=== PATIENT | female | born 1980 | race Caucasian/White ===

== ENCOUNTER → 2018-01-15 | Outpatient (CLI) | payer OTHER ==
[~2018-01-15] MED LIST: BCPILLS PO; BUPRTAB51 PO; SERT100T PO
== END | disposition home or self-care (01) ==
LOC: C.PAPS 08:38
PROVIDERS: ATTEND Obstetrics & Gynecology
DX: Z12.4 Encounter for screening for malignant neoplasm of cervix (principal)

== ENCOUNTER 2022-12-31 06:41 | Inpatient (IN) ==
[2022-12-31] MEDS ORDERED: MoRPHine SULFATE 10 MG/ML CARP/VIAL IV STA (07:06)
[2022-12-31] MEDS ORDERED: ONDANSETRON INJ 2 MG/ML 2 ML VIAL IV STA ×2 (07:06→11:41)
--- NOTE | 2022-12-31 07:13 | Emergency Department Note ---
Impression & Plan Diffuse abdominal pain ED Provider Note INFORMANT: Patient ED PROVIDER(S): Jt Ron DO CHIEF COMPLAINT: Diffuse crampy abdominal pain PLAN: Disposition: Admission Condition: Good Outpatient prescription management: none Referral: I spoke with the hospitalist, who will see the patient for a dmission/observation and further evaluation and consultation. MEDICAL DECISION MAKING: This is a 42-year-old female who presents to the ED with a chief complaint of crampy continuous of abdominal pain that is diffuse in nature. The patient states that it seems to be a little worse in the upper abdominal region. It started at 315 this morning. Woke her from sleep. She reports 1 episode of vomiting and strain to have a bowel movement. The symptoms are ongoing since that time. She currently did not have any nausea but did have some nausea earlier. G0, P0. Denies possibility of . Her vital signs reveal mild hypertension and tachycardia. She does have some mild tenderness to the epigastric area. Denies any previous abdominal surgeries. The patient's CBC shows a leukocytosis of 15. Chest x-ray did not show acute process. EKG shows a sinus rhythm at a rate of 83. Chemistry panel was unremarkable. Lipase was 14,380. CT scan shows evidence of pancreatitis. hCG was negative. The patient was given IV fluids normal saline. She was given IV morphine as well as IV Zofran and IV Dilaudid. She will be seen by the hospitalist for further e valuation and care. Triage Nursing notes reviewed. Vital Signs: reviewed Prior /Outside records reviewed: Gynecology visit 12/21/2022. Annual exam. Past history of abnormal Pap smear in the past. Differential diagnosis: Bowel obstruction, gastritis, colitis, intussusception, volvulus, pancreatitis, cholecystitis, other. Diagnostics, as interpreted by me: 12 lead ECG: Sinus rhythm at a rate of 83. No ST elevation. No PVCs. Normal QTC. Cardiac Monitoring ordered: Sinus rhythm in the 80s. Medical decision rules: none Imaging studies: Chest x-ray: No acute disease. No pneumonia or pneumothorax. CT scan of the abdomen pelvis shows pancreatitis. Procedures: none. Critical care: none. HPI: See MDM above. PAST MEDICAL HISTORY: See Below PAST SURGICAL HISTORY: See Below SOCIAL HISTORY: See Below HOME MEDICATIONS: See Below ALLERGIES: See Below VITALS: See Below PHYSICAL EXAMINATION: CONSTITUTIONAL/VITAL SIGNS: Reviewed GENERAL: Non-toxic in appearance. INTEGUMENTARY: Warm, dry, and [place]. HEAD: Normocephalic. EYES: without scleral icterus. ENT/OROPHARYNX: clear and moist. RESPIRATORY: No increased work of breathing. Lungs clear. CARDIOVASCULAR: Regular rate. Regular rhythm. GI/ABDOMEN: Soft and nontender. . EXTREMITIES: Normal NEUROLOGICAL: Intact without focal deficits. PSYCHIATRIC: Normal affect. MUSCULOSKELETAL: Normal. TRIAGE NURSING DOCUMENTATION REVIEWED. Past Med/Surg History Medical History (Updated 12/31/22 @ 07:12 by Jt Ron DO) Abnormal Pap smear of cervix Allergic rhinitis Bacterial vaginosis Depression Encounter for gynecological examination without abnormal finding External hemorrhoids Lichen sclerosus et atrophicus Screening for STD (sexually transmitted disease) SAMM III (vulvar intraepithelial neoplasia III) Surgical History (Updated 12/21/22 @ 13:06 by Caren Ann MD, FACOG) H/O hemorrhoidectomy H/O left breast biopsy fibroadenoma H/O local excision of skin lesion WLE of vulva by DERM for samm 3 H/O ovarian cystectomy left History of colposcopy History of tonsillectomy Family History Other Heart disease Social History (Updated 12/14/21 @ 14:23 by CASPER Balderrama) Smoking Status: Never smoker Tobacco Type: Cigarettes Age Started Using Tobacco: 16; Age Quit Using Tobacco: 30; Hx Alcohol Use: No Hx Substance Use: Yes Preferred Language: Palauan Feels Safe at Home: Yes Allergies Allergies Allergy/AdvReac Type Severity Reaction Status Date / Time methylchloroisothiazolinone Allergy Verified 12/21/22 12:52 Home Meds Home Medications Medication Instructions Recorded Confirmed cholecalciferol (vitamin D3) 25 75 mcg PO DAILY 06/07/21 12/21/22 mcg (1,000 unit) tablet (Vitamin D3) diphenhydramine HCl 25 mg tablet 12.5 mg PO DAILY 06/07/21 12/21/22 (Benadryl Allergy) losartan 25 mg tablet 12.5 mg PO DAILY 06/07/21 12/21/22 hydroxyzine HCl PO 09/20/22 12/21/22 biotin 5 mg capsule 5 mg PO DAILY 12/21/22 12/21/22 Results & Data (ED) Vital Signs Vital Signs - 24 hr 12/31/22 06:43 12/31/22 07:25 12/31/22 08:41 Temperature 36.6 C Temperature Source Temporal Artery Scan Pulse Rate 106 H Pulse Rate [Apical] 87 Pulse Rhythm Regular Pulse Strength Normal Respiratory Rate 18 18 Respiratory Effort / Characteristics Non-Labored Spontaneous Respiratory Depth Normal Respiratory Pattern Regular Blood Pressure 146/91 H Blood Pressure [Left Arm] 135/90 Blood Pressure Mean 109 Blood Pressure Mean [Left Arm] 105 Blood Pressure Position Sitting Pulse Oximetry 100 100 97 Oxygen Delivery Method Room Air Room Air Room Air Sepsis Recent Fever Within 48 Hours No Sepsis New/Unexplained Change in Mental Status No Sepsis Action Taken by Nursing No Action Required Laboratory Data 12/31/22 07:00 12/31/22 07:00 Lab Results 12/31/22 12/31/22 12/31/22 Range/Units 07:00 07:00 07:00 WBC 15.04 H (4.8-10.8) K/ul RBC 4.37 (4.20-5.40) M/uL Hgb 13.6 (12.0-16.0) g/dl Hct 39.3 (37.0-47.0) % MCV 89.9 (80.0-100.0) fL MCH 31.1 (25.0-34.0) pg MCHC 34.6 (32.0-36.0) g/dL RDW Std Deviation 39.5 (36.4-46.3) fL RDW Coeff of [place] 12.0 (11.5-14.5) % Plt Count 232 (130-400) K/uL MPV 10.1 (9.4-12.4) fL Immature Gran % (Auto) 0.4 % Neut % (Auto) 85.7 % Lymph % (Auto) 8.5 % [place]cher % (Auto) 4.3 % Eos % (Auto) 0.8 % Baso % (Auto) 0.3 % Neut # (Auto) 12.89 H (1.40-6.50) K/uL Lymph # (Auto) 1.28 (1.2-3.4) K/uL Letcher # (Auto) 0.65 H (0.11-0.59) K/uL Eos # (Auto) 0.12 (0-0.50) K/uL Baso # (Auto) 0.04 (0-0.2) K/uL Immature Gran # (Auto) 0.06 (0.01-0.20) K/uL Sodium 140 (136-145) mmol/L Potassium 3.9 (3.5-5.1) mmol/L Chloride 107 (98-107) mmol/L Carbon Dioxide 28 (21-32) mmol/L Anion Gap 5 (3-11) BUN 14 (6-23) mg/dl Creatinine 1.14 (0.6-1.2) mg/dl Est Cr Clr Drug Dosing 67.0 ml/min Est GFR ( Amer) 69.7 ml/min Est GFR (Non-Af Amer) 60.1 ml/min BUN/Creatinine Ratio 12.3 (10-20) Glucose 143 H (70-99(Fasting)) mg/dl Calcium 10.0 (8.5-10.1) mg/dl Total Bilirubin 0.5 (0.2-1.0) mg/dl AST 14 (13-39) U/L ALT 11 (7-52) U/L Alkaline Phosphatase 47 (34-104) U/L Total Protein 6.6 (6.0-8.3) gm/dl Albumin 4.3 (3.4-5.0) gm/dl Globulin 2.3 L (2.5-4.0) gm/dl Albumin/Globulin Ratio 1.9 (0.9-2) Lipase 60407 H (11-82) U/L HCG, Qual Negative (Negative) Administered Medications Discontinued Medications Ioversol (Optiray 350 100ml) 94 ml IV ONCE ONE Stop: 12/31/22 08:00 Last Admin: 12/31/22 08:00 Dose: 94 ml Documented By: NASIR Morphine Sulfate (Morphine Sulfate 10 Mg/Ml Carp/Vial) 6 mg IV NOW STA Stop: 12/31/22 07:07 Last Admin: 12/31/22 07:10 Dose: 6 mg Documented By: ANIA Ondansetron HCl (Ondansetron Inj 2 Mg/Ml 2 Ml Vial) 4 mg IV NOW STA Stop: 12/31/22 07:07 Last Admin: 12/31/22 07:10 Dose: 4 mg Documented By: ANIA Imaging Data Radiologist's Impression: Abdomen/Pelvis CT 12/31/22 07:06 CT SCAN OF THE ABDOMEN AND PELVIS WITH IV CONTRAST CLINICAL HISTORY: Generalized crampy abdominal pain. COMPARISON STUDY: No priors. TECHNIQUE: Following the IV administration of 94 cc of Optiray 350, CT scan of the abdomen and pelvis is performed from the lung bases to the proximal femora. Images are reviewed in the axial, sagittal, and coronal planes. IV contrast was administered without complication. A dose lowering technique was utilized adhering to the principles of ALARA. CT DOSE: 684.86 mGy.cm FINDINGS: Lung bases: The heart is normal in size and without pericardial effusion. The lung bases are clear. Liver: The contrast-enhanced liver is mildly enlarged, measuring 20 cm in length. The liver is otherwise normal in contour and attenuation. There is no intrahepatic biliary ductal dilatation. The hepatic veins and portal veins are patent. Gallbladder: Unremarkable. Spleen: Normal in size and attenuation. Pancreas: The pancreas is enlarged and edematous. There is significant peripancreatic inflammation and fluid consistent with acute pancreatitis. The gland enhances throughout and the duct is normal in caliber. No organized peripancreatic fluid collection is seen. Adrenal glands: Unremarkable. Kidneys: The contrast enhanced kidneys are normal in size and without hydronephrosis. The kidneys enhance symmetrically. Abdominal vasculature: The abdominal aorta is normal in course and caliber. Bowel: There is no bowel obstruction. Fecal retention is noted in the right colon. The appendix is well-visualized and normal. Peritoneum: Retroperitoneal fluid is seen tracking inferiorly from the pancreas. No intraperitoneal free air is identified. There is a fat-containing umbilical hernia. Lymphadenopathy: None. Pelvic viscera: The bladder, uterus, and adnexa are normal as visualized. An involuting follicle is suggested in the right ovary. Skeletal structures: No lytic or blastic lesions are seen. IMPRESSION: 1. Acute pancreatitis. Correlate with clinical and laboratory findings. 2. The gland enhances throughout and there is no organized peripancreatic fluid collection. 3. Mild hepatomegaly. 4. Additional findings as above. ACT 112: Negative or not required by law. Electronically signed by: Darien Mederos M.D. 12/31/2022 8:10 AM Chest X-Ray 12/31/22 07:07 SINGLE VIEW CHEST CLINICAL HISTORY: Upper abdominal pain FINDINGS: An AP, portable, upright chest radiograph is obtained. No prior studies are available for comparison at the time of dictation. The cardiomediastinal silhouette is unremarkable. The lungs and pleural spaces are clear. No pneumothorax is seen. The bony thorax is grossly intact. IMPRESSION: No active disease in the chest. ACT 112: Negative or not required by law. Electronically signed by: Darien Mederos M.D. 12/31/2022 7:18 AM Discharge Plan Visit Data Chief Complaint: Abdominal Pain Stated Complaint: ABD PAIN ED Provider: Jt Ron Discharge Problem: Diffuse abdominal pain Patient Disposition: Being Evaluated by Hospitalist Forms Stand Alone Forms: [facility] Prescriptions Prescriptions: No Action biotin 5 mg capsule 5 mg PO DAILY hydroxyzine HCl PO diphenhydramine HCl [Benadryl Allergy] 25 mg Tablet 12.5 mg PO DAILY losartan 25 mg tablet 12.5 mg PO DAILY cholecalciferol (vitamin D3) [Vitamin D3] 25 mcg (1,000 unit) Tablet 75 mcg PO DAILY Referrals Referrals: Jackie Mc DO [Primary Care Provider] -
[2022-12-31 07:19] LABS: Basophils # (auto) 0.04 K/uL (0-0.2); Basophils % (auto) 0.3 %; Eosinophils # (auto) 0.12 K/uL (0-0.50); Eosinophils % (auto) 0.8 %; Hematocrit (blood only) 39.3 % (37.0-47.0); Hemoglobin 13.6 g/dl (12.0-16.0); Immature Granulocytes # (auto) 0.06 K/uL (0.01-0.20); Immature Granulocytes % (auto) 0.4 %; Lymphocytes # (auto) 1.28 K/uL (1.2-3.4); Lymphocytes % (auto) 8.5 %; Mean Corpuscular Hemoglobin 31.1 pg (25.0-34.0); Mean Corpuscular Hgb Conc 34.6 g/dL (32.0-36.0); Mean Corpuscular Volume 89.9 fL (80.0-100.0); Mean Platelet Volume 10.1 fL (9.4-12.4); Monocytes # (auto) 0.65 K/uL (0.11-0.59); Monocytes % (auto) 4.3 %; Neutrophils # (auto) 12.89 K/uL (1.40-6.50); Neutrophils % (auto) 85.7 %; Platelet Count 232 K/uL (130-400); RDW Standard Deviation 39.5 fL (36.4-46.3); Red Blood Count 4.37 M/uL (4.20-5.40); White Blood Count 15.04 K/ul (4.8-10.8)
--- NOTE | 2022-12-31 07:19 | XRay Report ---
SINGLE VIEW CHEST CLINICAL HISTORY: Upper abdominal pain FINDINGS: An AP, portable, upright chest radiograph is obtained. No prior studies are available for c omparison at the time of dictation. The cardiomediastinal silhouette is unremarkable. The lungs and p leural spaces are clear. No pneumothorax is seen. The bony thorax is grossly intact. IMPRESSION: No active disease in the chest. ACT 112: Negative or not required by law. Electronically signed by: Darien Mederos M.D. 12/31/2022 7:18 AM
[2022-12-31 07:44] LABS: Pregnancy Test, Serum Negative (Negative)
[2022-12-31 07:45] LABS: BUN Creatinine Ratio 12.3 (10-20); Est GFR (African American) 69.7 ml/min; Est GFR (Non-African American) 60.1 ml/min; Potassium 3.9 mmol/L (3.5-5.1)
[2022-12-31] MEDS ORDERED: OPTIRAY 350 100ml IV ONE (07:59)
--- NOTE | 2022-12-31 08:13 | CT Scan Report ---
CT SCAN OF THE ABDOMEN AND PELVIS WITH IV CONTRAST CLINICAL HISTORY: Generalized crampy abdominal pain. COMPARISON STUDY: No priors. TECHNIQUE: Following the IV administration of 94 cc of Optiray 350, CT scan of the abdomen and pelvi s is performed from the lung bases to the proximal femora. Images are reviewed in the axial, sagittal , and coronal planes. IV contrast was administered without complication. A dose lowering technique wa s utilized adhering to the principles of ALARA. CT DOSE: 684.86 mGy.cm FINDINGS: Lung bases: The heart is normal in size and without pericardial effusion. The lung bases are clear. Liver: The contrast-enhanced liver is mildly enlarged, measuring 20 cm in length. The liver is otherw ise normal in contour and attenuation. There is no intrahepatic biliary ductal dilatation. The hepati c veins and portal veins are patent. Gallbladder: Unremarkable. Spleen: Normal in size and attenuation. Pancreas: The pancreas is enlarged and edematous. There is significant peripancreatic inflammation an d fluid consistent with acute pancreatitis. The gland enhances throughout and the duct is normal in c aliber. No organized peripancreatic fluid collection is seen. Adrenal glands: Unremarkable. Kidneys: The contrast enhanced kidneys are normal in size and without hydronephrosis. The kidneys enh ance symmetrically. Abdominal vasculature: The abdominal aorta is normal in course and caliber. Bowel: There is no bowel obstruction. Fecal retention is noted in the right colon. The appendix is w ell-visualized and normal. Peritoneum: Retroperitoneal fluid is seen tracking inferiorly from the pancreas. No intraperitoneal f ree air is identified. There is a fat-containing umbilical hernia. Lymphadenopathy: None. Pelvic viscera: The bladder, uterus, and adnexa are normal as visualized. An involuting follicle is s uggested in the right ovary. Skeletal structures: No lytic or blastic lesions are seen. IMPRESSION: 1. Acute pancreatitis. Correlate with clinical and laboratory findings. 2. The gland enhances throughout and there is no organized peripancreatic fluid collection. 3. Mild hepatomegaly. 4. Additional findings as above. ACT 112: Negative or not required by law. Electronically signed by: Darien Mederos M.D. 12/31/2022 8:10 AM
[2022-12-31 08:58] LABS: Albumin Globulin Ratio 1.9 (0.9-2); Albumin Level 4.3 gm/dl (3.4-5.0); Bilirubin,Total 0.5 mg/dl (0.2-1.0); Globulin 2.3 gm/dl (2.5-4.0); Total Protein 6.6 gm/dl (6.0-8.3)
[2022-12-31] MEDS ORDERED: SODIUM CHLORIDE 0.9% 1000ML 1,000 ML IV ONE (09:14)
[2022-12-31] MEDS ORDERED: PROCHLORPERAZINE 2 ML IV ONE (09:30)
[2022-12-31] MEDS ORDERED: HYDROmorphone INJ 2 MG/ML SYR/VIAL IV STA (09:30)
--- NOTE | 2022-12-31 09:43 | History & Physical Report ---
Date of Service December 31, 2022 Assessment & Plan (1) Acute pancreatitis: Plan: First episode of pancreatitis. No clear etiology at this time. No evidence of gallstones and no reported alcohol use. Lipid panel pending. GI aware. Cont aggressive fluid resuscitation and antiemetics/pain medication as needed. She has an issue with chronic constipation and takes miralax daily. She was counseled on the effects of narcotics from this standpoint. Given the PO volume of miralax will opt for scheduled senna instead. Scheduled APAP with Tramadol ordered. Toradol may also be used for pain control as needed first line to decrease the risks of worsening constipation and drowsiness. (2) Rash: Plan: reports a rash recently for which she was taking topical clobetasol. This is recurrent, but is currently not present. Holding clobetasol cream at this time and patient agrees with this plan. (3) Decreased sexual interest: Plan: Recently taking Addyi, stopping two weeks ago. This is a medication which works on the serotonin and dopamine receptors. There is no listed side effect of pancreatitis. (4) Anxiety: Plan: chronic, stable. Continues on hydroxyzine PRN (5) HTN (hypertension): Plan: chronic, at goal. On losartan 12.5mg daily. Cont this daily. DVT proph-Lovenox Full Code Dispo- to telemetry and likely to home in 2-3 days Julia Amos DO [facility] Hospitalist History of Present Illness Chief Complaint: abdominal pain Primary Care Provider: Jackie Mc DO 42 yo F started wtih epigastric pain described as clenching and cramping, radiates across her upper abdomen. no alcohol use no h/o gallstones chronic dermatitis-allergic Just had steroid 10-20mg last week for a couple of days related to dermatitis, which is improved recently lost her dog and reports being very stressed as a result of this. added biotin 1 month ago recently was taking freddie for low libido for 2.5 months, but stopped that 1-2 weeks ago no h/o pancreatitis no recent illnesses Allergies Allergy/AdvReac Type Severity Reaction Status Date / Time methylchloroisothiazolinone Allergy Unknown rash Verified 12/31/22 10:00 Home Medications Medication Instructions Recorded Confirmed Type cholecalciferol (vitamin D3) 25 75 mcg PO DAILY 06/07/21 12/31/22 History mcg (1,000 unit) tablet (Vitamin D3) diphenhydramine HCl 25 mg tablet 12.5 mg PO DAILY 06/07/21 12/31/22 History (Benadryl Allergy) losartan 25 mg tablet 12.5 mg PO DAILY 06/07/21 12/31/22 History hydroxyzine HCl 10 mg PO Q6H PRN Anxiety 09/20/22 12/31/22 History biotin 5 mg capsule 5 mg PO DAILY 12/21/22 12/31/22 History clobetasol 0.05 % topical cream 1 applic topical BID 12/31/22 12/31/22 History flibanserin 100 mg tablet (Addyi) mg PO 12/31/22 History Past Med/Surg History Medical History (Updated 12/31/22 @ 12:58 by Julia Amos DO) Abnormal Pap smear of cervix Allergic rhinitis Anxiety Bacterial vaginosis Depression Encounter for gynecological examination without abnormal finding External hemorrhoids HTN (hypertension) Screening for STD (sexually transmitted disease) SAMM III (vulvar intraepithelial neoplasia III) Surgical History H/O hemorrhoidectomy H/O left breast biopsy fibroadenoma H/O local excision of skin lesion WLE of vulva by DERM for samm 3 H/O ovarian cystectomy left History of colposcopy History of tonsillectomy Family History Other Heart disease Social History Smoking Status: Former smoker Tobacco Type: Cigarettes Age Started Using Tobacco: 16; Age Quit Using Tobacco: 30; Smoking End Date: 2010; Hx Alcohol Use: Yes Alcohol type: wine and hard liquor Hx Substance Use: Yes Preferred Language: Maldivian Gallery Intern Required: No Beliefs That Will Affect Care: None Current Living Situation: Spouse and Family Current Living Situation Comment: step son every other weekend Feels Safe at Home: Yes Safety Concerns: Feels Safe At This Time Assistive Devices: None Review of Systems Review of Systems: All systems were reviewed and negative except as indicated in HPI above. Physical Exam Physical Exam: CONSTITUTIONAL: WNWD, vitals as above, generally appears drowsy from dilaudid EYES: EOMI bilaterally, PERRL, normal conjunctivae, no scleral icterus ENT: external ear and nose normal, oropharynx clear, dry oral mucosa. NECK: trachea midline RESPIRATORY: clear to auscultation bilaterally, no crackles, rales or wheezes, normal respiratory effort CARDIOVASCULAR: tachy rate and rhythm, S1 and 2 heard without murmurs, gallops or rubs, no JVD, no peripheral edema CHEST: inspection of chest was normal GASTROINTESTINAL: soft, TTP in epigastric region, nondistended, no guarding. MUSCULOSKELETAL: strength 5/5 throughout, head is normocephalic and atraumatic SKIN: warm and dry, no rashes NEUROLOGIC: CN 2-12 grossly intact, no sensory deficit, normal cognition, normal speech, no tremor PSYCHIATRIC: alert cooperative and oriented to person, place and time. Euthymic mood, makes good eye contact, language grossly intact, recent and remote memory grossly intact. Results & Data Results & Data ([facility]) Vital Signs (Past 12 Hours) Vital Signs Temp Pulse Pulse Resp BP BP Pulse Ox 12/31/22 08:41 87 18 135/90 97 12/31/22 07:25 100 12/31/22 06:43 36.6 C 106 H 18 146/91 H 100 O2 Del Method 12/31/22 08:41 Room Air 12/31/22 07:25 Room Air 12/31/22 06:43 Room Air Laboratory Results Short CBC 12/31/22 Range/Units 07:00 WBC 15.04 H (4.8-10.8) K/ul Hgb 13.6 (12.0-16.0) g/dl Hct 39.3 (37.0-47.0) % Plt Count 232 (130-400) K/uL BMP 12/31/22 07:00 Sodium 140 Potassium 3.9 Chloride 107 Carbon Dioxide 28 BUN 14 Creatinine 1.14 Glucose 143 H Calcium 10.0 Liver Function 12/31/22 Range/Units 07:00 Total Bilirubin 0.5 (0.2-1.0) mg/dl AST 14 (13-39) U/L ALT 11 (7-52) U/L Alkaline Phosphatase 47 (34-104) U/L Albumin 4.3 (3.4-5.0) gm/dl Diagnostic Findings Abdomen/Pelvis CT 12/31/22 07:06 CT SCAN OF THE ABDOMEN AND PELVIS WITH IV CONTRAST CLINICAL HISTORY: Generalized crampy abdominal pain. COMPARISON STUDY: No priors. TECHNIQUE: Following the IV administration of 94 cc of Optiray 350, CT scan of the abdomen and pelvis is performed from the lung bases to the proximal femora. Images are reviewed in the axial, sagittal, and coronal planes. IV contrast was administered without complication. A dose lowering technique was utilized adhering to the principles of ALARA. CT DOSE: 684.86 mGy.cm FINDINGS: Lung bases: The heart is normal in size and without pericardial effusion. The lung bases are clear. Liver: The contrast-enhanced liver is mildly enlarged, measuring 20 cm in length. The liver is otherwise normal in contour and attenuation. There is no intrahepatic biliary ductal dilatation. The hepatic veins and portal veins are patent. Gallbladder: Unremarkable. Spleen: Normal in size and attenuation. Pancreas: The pancreas is enlarged and edematous. There is significant peripancreatic inflammation and fluid consistent with acute pancreatitis. The gland enhances throughout and the duct is normal in caliber. No organized peripancreatic fluid collection is seen. Adrenal glands: Unremarkable. Kidneys: The contrast enhanced kidneys are normal in size and without hydronephrosis. The kidneys enhance symmetrically. Abdominal vasculature: The abdominal aorta is normal in course and caliber. Bowel: There is no bowel obstruction. Fecal retention is noted in the right colon. The appendix is well-visualized and normal. Peritoneum: Retroperitoneal fluid is seen tracking inferiorly from the pancreas. No intraperitoneal free air is identified. There is a fat-containing umbilical hernia. Lymphadenopathy: None. Pelvic viscera: The bladder, uterus, and adnexa are normal as visualized. An involuting follicle is suggested in the right ovary. Skeletal structures: No lytic or blastic lesions are seen. IMPRESSION: 1. Acute pancreatitis. Correlate with clinical and laboratory findings. 2. The gland enhances throughout and there is no organized peripancreatic fluid collection. 3. Mild hepatomegaly. 4. Additional findings as above. ACT 112: Negative or not required by law. Electronically signed by: Darien Mederos M.D. 12/31/2022 8:10 AM Chest X-Ray 12/31/22 07:07 SINGLE VIEW CHEST CLINICAL HISTORY: Upper abdominal pain FINDINGS: An AP, portable, upright chest radiograph is obtained. No prior studies are available for comparison at the time of dictation. The cardiomediastinal silhouette is unremarkable. The lungs and pleural spaces are clear. No pneumothorax is seen. The bony thorax is grossly intact. IMPRESSION: No active disease in the chest. ACT 112: Negative or not required by law. Electronically signed by: Darien Mederos M.D. 12/31/2022 7:18 AM Code Status & VTE Plan VTE Prophylaxis Plan VTE Prophylaxis will be ordered: Yes
--- NOTE | 2022-12-31 10:47 | Electrocardiogram Report ---
Test Reason : Blood Pressure : / mmHG Vent. Rate : 083 BPM Atrial Rate : 083 BPM P-R Int : 086 ms QRS Dur : 076 ms QT Int : 400 ms P-R-T Axes : 000 065 027 degrees QTc Int : 470 ms Sinus rhythm with short [place] Otherwise normal ECG No previous ECGs available Confirmed by Luciano Canas ([id number]) on 12/31/2022 10:47:18 AM Referred By: REFERRED SELF Confirmed By:Luciano Canas
[2022-12-31] MEDS ORDERED: MoRPHine SULFATE 4 MG/ML 1 ML CARP\\VIAL IV PRN (11:35)
[2022-12-31] MEDS: HYDROmorphone INJ 0.5 MG/0.5 ML SYR IV PRN ×3 (12:20→23:37)
--- NOTE | 2022-12-31 12:23 | Gastrointestinal Consultation ---
Date of Consultation December 31, 2022 Assessment & Plan (1) Acute pancreatitis: Plan acute pancreatitis: idiopathic, mild at this time. no etoh abuse and no gallstones. recs: check lipid panel including triglycerides NPO, aggressive IVFs 250-500 cc/hr LR in first 24 hours pain control prn once pain and sx's improve can advance diet to low residue then as tolerated will likely need outpatient EUS to help determine etiology for her pancreatitis. Thank you for allowing me to participate in the care of this patient. History of Present Illness Attending Physician: Julia Amos, History of Present Illness 42 yo female here with epigastric pains, found to have pancreatitis. Denies ETOH abuse, CT A/P without any gallstones or gallbladder issues. She has been having nausea and vomiting as well as epigastric pains, pains are mild currently s/p dilaudid and morphine. Not on diuretics, no family hx pancreatitis nor personal hx. She does have elevated lipid levels but is not sure if it's triglycerides. no fluid collections or abscesses noted on CT. CBC, CMP, lipase reviewed. Allergies Allergy/AdvReac Type Severity Reaction Status Date / Time methylchloroisothiazolinone Allergy Unknown rash Verified 12/31/22 10:00 Home Medications Medication Instructions Recorded Confirmed Type cholecalciferol (vitamin D3) 25 75 mcg PO DAILY 06/07/21 12/31/22 History mcg (1,000 unit) tablet (Vitamin D3) diphenhydramine HCl 25 mg tablet 12.5 mg PO DAILY 06/07/21 12/31/22 History (Benadryl Allergy) losartan 25 mg tablet 12.5 mg PO DAILY 06/07/21 12/31/22 History hydroxyzine HCl 10 mg PO Q6H PRN Anxiety 09/20/22 12/31/22 History biotin 5 mg capsule 5 mg PO DAILY 12/21/22 12/31/22 History clobetasol 0.05 % topical cream 1 applic topical BID 12/31/22 12/31/22 History flibanserin 100 mg tablet (Addyi) mg PO 12/31/22 History Patient History Medical History Abnormal Pap smear of cervix Allergic rhinitis Bacterial vaginosis Depression Encounter for gynecological examination without abnormal finding External hemorrhoids Screening for STD (sexually transmitted disease) MARIAH III (vulvar intraepithelial neoplasia III) Surgical History H/O hemorrhoidectomy H/O left breast biopsy fibroadenoma H/O local excision of skin lesion WLE of vulva by DERM for mariah 3 H/O ovarian cystectomy left History of colposcopy History of tonsillectomy Family History Other Heart disease Social History Smoking Status: Former smoker Tobacco Type: Cigarettes Age Started Using Tobacco: 16; Age Quit Using Tobacco: 30; Smoking End Date: 2010; Hx Alcohol Use: No Hx Substance Use: Yes Preferred Language: Argentine Feels Safe at Home: Yes Review of Systems Constitutional: no fever, no chills and no weight loss Eyes: as per Subjective / HPI Ear, Nose, Mouth, Throat: as per Subjective / HPI Respiratory: no dyspnea and no dyspnea on exertion Cardiovascular: no chest pain and no palpitations Gastrointestinal: as per Subjective / HPI Musculoskeletal: no joint pain and no swelling Integumentary: no rash and no lesions Neurologic: no numbness and no paresthesia Psychiatric: no depression and no anxiety Endocrine: no fatigue Hematologic / Lymphatic: no easy bleeding and no easy bruising Physical Exam Constitutional: WD/WN, vitals as above Eyes: EOM intact bilaterally Neck: normal visual inspection Respiratory: normal respiratory effort, lungs clear to auscultation Cardiovascular: RRR, no murmur, no edema Gastrointestinal (Abdomen): Inspection/Auscultation: abdomen normal to inspection; abdomen not distended Percussion/Palpation: abdomen soft; abdomen nontender and no hepatosplenomegaly Musculoskeletal: Extremities: no cyanosis Gait: normal gait Skin: no rashes, warm and dry Neurologic: moves all extremities Psychiatric: A+Ox3, euthymic affect Results & Data ([facility]) Vital Signs (Past 12 Hours) Vital Signs Temp Pulse Pulse Pulse Resp BP BP 12/31/22 11:37 36.8 C 105 H 16 111/70 12/31/22 10:00 88 18 12/31/22 08:41 87 18 135/90 12/31/22 07:25 12/31/22 06:43 36.6 C 106 H 18 146/91 H Pulse Ox O2 Del Method 12/31/22 11:37 97 Room Air 12/31/22 10:00 94 Room Air 12/31/22 08:41 97 Room Air 12/31/22 07:25 100 Room Air 12/31/22 06:43 100 Room Air PG Care Time/CCT Total # of Minutes Spent Total Time Spent with Patient: Total time spent is greater than 50% in coordination of care (as documented) at patient's floor/unit and/or counseling patient: Coding Level of Care Code INP/OBS CONSULT LVL 4, 60 MIN Diagnoses Acute pancreatitis K85.90
[2022-12-31] MEDS: ACETAMINOPHEN 500 MG TAB PO SCH ×2 (12:41→20:08)
[2022-12-31] MEDS: traMADol HCL 50 MG TABLET PO SCH ×2 (12:41→20:08)
[2022-12-31] MEDS: LACTATED RINGER'S 1,000 ML IV SCH ×3 (12:42→22:42)
[2022-12-31] MEDS: KETOROLAC TROMETHAMINE 15 MG/ML VIAL IV PRN (17:23)
[2022-12-31] MEDS: DOCUSATE SODIUM/SENNA 50/8.6MG TAB PO SCH (20:08)
[2023-01-01 01:03] LABS: Appearance Urine Clear (Clear); Bacteria Urine Automated Negative (Negative); Bilirubin Urine Negative (Negative); Blood Urine 3+ (Negative); Color Urine Yellow; Epithelial Cell Urine Auto >30 /lpf (0-5); Glucose Urine UA Negative (Negative); Ketones Urine Negative (Negative); Leukocyte Esterase Urine Negative (Negative); Nitrite Urine Negative (Negative); Protein Urine 1+ (Negative); RBC Urine Automated 0-4 /hpf (0-4); Specific Gravity Urine > 1.045 (1.000-1.030); Urobilinogen Urine Negative (Negative); pH Urine 5.5 (4.5-7.5)
[2023-01-01] MEDS: LACTATED RINGER'S 1,000 ML IV SCH ×5 (03:10→20:19)
[2023-01-01] MEDS: traMADol HCL 50 MG TABLET PO SCH ×3 (05:19→21:55)
[2023-01-01] MEDS: ACETAMINOPHEN 500 MG TAB PO SCH ×3 (05:20→21:55)
[2023-01-01 06:27] LABS: Hematocrit (blood only) 32.1 % (37.0-47.0); Hemoglobin 11.1 g/dl (12.0-16.0); Mean Corpuscular Hemoglobin 31.1 pg (25.0-34.0); Mean Corpuscular Hgb Conc 34.6 g/dL (32.0-36.0); Mean Corpuscular Volume 89.9 fL (80.0-100.0); Mean Platelet Volume 10.4 fL (9.4-12.4); Platelet Count 167 K/uL (130-400); RDW Standard Deviation 39.3 fL (36.4-46.3); Red Blood Count 3.57 M/uL (4.20-5.40); White Blood Count 12.36 K/ul (4.8-10.8)
[2023-01-01] MEDS: KETOROLAC TROMETHAMINE 15 MG/ML VIAL IV PRN (06:29)
[2023-01-01] MEDS: hydrOXYzine HCl 10 MG TAB PO PRN (06:29)
[2023-01-01 07:07] LABS: Albumin Level 3.5 gm/dl (3.4-5.0); BUN Creatinine Ratio 13.6 (10-20); Bilirubin Direct 0.1 mg/dl (0-0.2); Bilirubin,Total 0.9 mg/dl (0.2-1.0); Calcium 8.4 mg/dl (8.5-10.1); Chol HDL Ratio 3.9 (0-5); Creatinine Clr Calc Pharmacy 95.8 ml/min; Est GFR (African American) 105.3 ml/min; Est GFR (Non-African American) 90.8 ml/min; Magnesium 1.7 mg/dl (1.7-2.4); Phosphorus 1.9 mg/dl (2.5-4.9); Potassium 3.4 mmol/L (3.5-5.1); Total Protein 5.3 gm/dl (6.0-8.3)
[2023-01-01] MEDS: LOSARTAN POTASSIUM 25 MG TAB PO SCH (07:45)
--- NOTE | 2023-01-01 08:00 | Hospitalist Progress Note ---
Date of Service January 01, 2023 Assessment & Plan (1) Acute pancreatitis: Plan: No clear etiology noted Triglycerides normal CT A/P shows extensive pancreatic swelling, retroperitoneal fluid extending from pancreas, biliary ducts normal, mild hepatomegally Lipase 13695--> 2545 Continue conservative management, IVF 250 cc/hr --> can likely reduce to 125cc/hr later tonight, advance diet to clears Appreciate GI input (2) Rash: Plan: reports a rash recently for which she was taking topical clobetasol. This is recurrent, but is currently not present. Holding clobetasol cream at this time and patient agrees with this plan. (3) Decreased sexual interest: Plan: Recently taking Addyi, stopping two weeks ago. This is a medication which works on the serotonin and dopamine receptors. There is no listed side effect of pancreatitis. (4) Anxiety: Plan: chronic, stable. Continues on hydroxyzine PRN (5) HTN (hypertension): Plan: chronic, at goal. On losartan 12.5mg daily. Cont this daily. DVT proph-Lovenox Full Code Dispo- Plan for discharge home eventually Admission and Anticipated Discharge Date Admission Date: December 31, 2022 Subjective Patient admitted yesterday for abdominal pain found to have acute pancreatitis (first episode) Reports gas discomfort but abdominal pain is much improved Physical Exam Physical Exam: Appears well, no acute distress, ambulating in room with no difficulty Respiratory: Breathing comfortably on room air, no wheezing/rhonchi Cardiovascular: Mildly tachycardic but no murmurs/rubs/gallops Gastrointestinal (Abdomen): Hypoactive, no rebound or guarding Musculoskeletal: no edema Neurologic: awake, alert, ambulating with no difficulty Results & Data Results & Data ([facility]) Vital Signs (Past 12 Hours) Vital Signs Temp Pulse Pulse Resp BP Pulse Ox O2 Del Method 01/01/23 07:35 37.1 C 90 16 122/73 94 Room Air 01/01/23 07:31 98 H 01/01/23 03:12 36.5 C 113 H 16 145/80 H 95 Room Air 12/31/22 23:12 72 12/31/22 22:54 36.7 C 96 H 18 116/74 95 Room Air
[2023-01-01] MEDS ORDERED: POTASSIUM PHOS 3 MMOL/1 ML INFUSION IV STA (09:52)
[2023-01-01] MEDS ORDERED: POTASSIUM CHLORIDE / WTR 10 MEQ/100 ML PLCT IV ONE (09:53)
[2023-01-01] MEDS ORDERED: POTASSIUM PHOSPHATE 15 MMOL in SODIUM CHLORIDE 0.9% 250 ML IV ONE ×2 (10:00→11:15)
[2023-01-01] MEDS: ENOXAPARIN INJ 40 MG/0.4 ML SYR SQ SCH (10:58)
[2023-01-01] MEDS: HYDROmorphone INJ 0.5 MG/0.5 ML SYR IV PRN (12:50)
[2023-01-01] MEDS: SIMETHICONE 80 MG CHEW PO PRN ×2 (12:51→20:31)
[2023-01-01] MEDS: ONDANSETRON INJ 2 MG/ML 2 ML VIAL IV PRN (20:31)
[2023-01-01] MEDS: DOCUSATE SODIUM/SENNA 50/8.6MG TAB PO SCH (21:55)
[2023-01-01] MEDS ORDERED: Nursing to Pharmacy Communication SCH (23:00)
[2023-01-02] MEDS: LACTATED RINGER'S 1,000 ML IV SCH ×4 (00:26→18:42)
[2023-01-02] MEDS: traMADol HCL 50 MG TABLET PO SCH ×3 (04:57→20:49)
[2023-01-02] MEDS: ACETAMINOPHEN 500 MG TAB PO SCH (05:12)
[2023-01-02] MEDS: hydrOXYzine HCl 10 MG TAB PO PRN (05:12)
[2023-01-02 06:58] LABS: Hematocrit (blood only) 29.6 % (37.0-47.0); Hemoglobin 10.2 g/dl (12.0-16.0); Mean Corpuscular Hemoglobin 31.6 pg (25.0-34.0); Mean Corpuscular Hgb Conc 34.5 g/dL (32.0-36.0); Mean Corpuscular Volume 91.6 fL (80.0-100.0); Mean Platelet Volume 10.5 fL (9.4-12.4); Platelet Count 147 K/uL (130-400); RDW Coefficient of Variation 12.1 % (11.5-14.5); RDW Standard Deviation 40.8 fL (36.4-46.3); Red Blood Count 3.23 M/uL (4.20-5.40)
[2023-01-02 07:22] LABS: Albumin Globulin Ratio 1.6 (0.9-2); Albumin Level 3.1 gm/dl (3.4-5.0); BUN Creatinine Ratio 7.9 (10-20); Bilirubin,Total 0.9 mg/dl (0.2-1.0); Calcium 8.6 mg/dl (8.5-10.1); Est GFR (African American) 113.7 ml/min; Est GFR (Non-African American) 98.1 ml/min; Potassium 3.5 mmol/L (3.5-5.1); Total Protein 5.1 gm/dl (6.0-8.3)
[2023-01-02 07:40] LABS: Basophils # (auto) 0.02 K/uL (0-0.2); Basophils % (auto) 0.2 %; Eosinophils # (auto) 0.13 K/uL (0-0.50); Eosinophils % (auto) 1.3 %; Immature Granulocytes # (auto) 0.04 K/uL (0.01-0.20); Immature Granulocytes % (auto) 0.4 %; Lymphocytes # (auto) 0.94 K/uL (1.2-3.4); Lymphocytes % (auto) 9.1 %; Monocytes # (auto) 0.61 K/uL (0.11-0.59); Monocytes % (auto) 5.9 %; Neutrophils # (auto) 8.56 K/uL (1.40-6.50); Neutrophils % (auto) 83.1 %
[2023-01-02] MEDS: LOSARTAN POTASSIUM 25 MG TAB PO SCH (08:04)
[2023-01-02] MEDS: ENOXAPARIN INJ 40 MG/0.4 ML SYR SQ SCH (08:04)
[2023-01-02] MEDS: KETOROLAC TROMETHAMINE 15 MG/ML VIAL IV PRN ×2 (10:05→20:49)
--- NOTE | 2023-01-02 11:06 | Hospitalist Progress Note ---
Date of Service January 02, 2023 Assessment & Plan (1) Acute pancreatitis: Plan: No clear etiology noted Triglycerides normal CT A/P shows extensive pancreatic swelling, retroperitoneal fluid extending from pancreas, biliary ducts normal, mild hepatomegaly Lipase 76680--> 2545--> 410 Appreciate GI input Tolerating clears--> will advance diet to full liquid. If she tolerates a full liquid diet today, can likely discharge home tomorrow to continue full liquid diet for a couple more days at home. She can continue to slowly advance her diet while at home. (2) Rash: Plan: reports a rash recently for which she was taking topical clobetasol. This is recurrent, but is currently not present. Holding clobetasol cream at this time and patient agrees with this plan. (3) Decreased sexual interest: Plan: Recently taking Addyi, stopping two weeks ago. This is a medication which works on the serotonin and dopamine receptors. There is no listed side effect of pancreatitis. (4) Anxiety: Plan: chronic, stable. Continues on hydroxyzine PRN (5) HTN (hypertension): Plan: chronic, at goal. On losartan 12.5mg daily. Cont this daily. DVT proph-Lovenox Full Code Dispo- Likely discharge home tomorrow if she tolerates a full liquid diet today Admission and Anticipated Discharge Date Admission Date: December 31, 2022 Subjective Still with epigastric pain, described as "burning" sensation Tolerated clears yesterday (except Jello which made her nauseous) Reports mild frontal headache currently, declining toradol and fioricet at this time Physical Exam Physical Exam: Pleasant and comfortable, no acute distress Respiratory: Breathing comfortably on room air, no wheezing/rhonchi/rales Cardiovascular: Mildly tachycardic, no murmurs/rubs/gallops Gastrointestinal (Abdomen): +epigastric tenderness, no rebound or guarding, hypoactive BS Musculoskeletal: No edema Neurologic: awake, alert, spontaneously moving extremities Results & Data Results & Data ([facility]) Vital Signs (Past 12 Hours) Vital Signs Temp Pulse Pulse Resp BP Pulse Ox O2 Del Method 01/02/23 07:46 36.9 C 103 H 18 105/71 93 Room Air 01/02/23 07:16 82 01/02/23 02:38 36.5 C 100 H 16 117/63 94 Room Air 01/02/23 00:54 96 H
[2023-01-02] MEDS: ACETAMINOPHEN 325 MG TAB PO PRN ×2 (13:48→18:41)
[2023-01-02] MEDS: DOCUSATE SODIUM/SENNA 50/8.6MG TAB PO SCH (20:49)
[2023-01-02] MEDS: SIMETHICONE 80 MG CHEW PO PRN (20:50)
[2023-01-02] MEDS ORDERED: ACETAMINOPHEN 1,000 MG/100 ML VIAL IV STA (21:34)
[2023-01-03] MEDS: LACTATED RINGER'S 1,000 ML IV SCH (05:01)
[2023-01-03] MEDS: traMADol HCL 50 MG TABLET PO SCH (05:51)
[2023-01-03] MEDS: LOSARTAN POTASSIUM 25 MG TAB PO SCH (08:01)
[2023-01-03] MEDS: ENOXAPARIN INJ 40 MG/0.4 ML SYR SQ SCH (08:02)
[2023-01-03] MEDS: ONDANSETRON INJ 2 MG/ML 2 ML VIAL IV PRN (08:11)
[2023-01-03 08:42] LABS: Basophils # (auto) 0.02 K/uL (0-0.2); Basophils % (auto) 0.2 %; Eosinophils # (auto) 0.22 K/uL (0-0.50); Eosinophils % (auto) 2.4 %; Hematocrit (blood only) 29.3 % (37.0-47.0); Hemoglobin 10.1 g/dl (12.0-16.0); Immature Granulocytes # (auto) 0.06 K/uL (0.01-0.20); Immature Granulocytes % (auto) 0.7 %; Lymphocytes % (auto) 8.8 %; Mean Corpuscular Hemoglobin 30.9 pg (25.0-34.0); Mean Corpuscular Hgb Conc 34.5 g/dL (32.0-36.0); Mean Corpuscular Volume 89.6 fL (80.0-100.0); Mean Platelet Volume 10.6 fL (9.4-12.4); Monocytes # (auto) 0.53 K/uL (0.11-0.59); Monocytes % (auto) 5.8 %; Neutrophils # (auto) 7.43 K/uL (1.40-6.50); Neutrophils % (auto) 82.1 %; Platelet Count 151 K/uL (130-400); RDW Standard Deviation 38.9 fL (36.4-46.3); Red Blood Count 3.27 M/uL (4.20-5.40); White Blood Count 9.06 K/ul (4.8-10.8)
[2023-01-03 09:27] LABS: Albumin Globulin Ratio 1.3 (0.9-2); BUN Creatinine Ratio 8.8 (10-20); Bilirubin,Total 0.8 mg/dl (0.2-1.0); Calcium 8.3 mg/dl (8.5-10.1); Creatinine Clr Calc Pharmacy 120.7 ml/min; Est GFR (African American) 126.8 ml/min; Est GFR (Non-African American) 109.4 ml/min; Globulin 2.3 gm/dl (2.5-4.0); Potassium 3.4 mmol/L (3.5-5.1); Total Protein 5.3 gm/dl (6.0-8.3)
[2023-01-03] MEDS ORDERED: POTASSIUM CHLORIDE CRTAB 20 MEQ TABCR PO STA (10:22)
--- NOTE | 2023-01-03 13:00 | Discharge Summary ---
Date of Service January 03, 2023 Admission HPI Per Admitting Provider 42 yo F started wtih epigastric pain described as clenching and cramping, radiates across her upper abdomen. no alcohol use no h/o gallstones chronic dermatitis-allergic Just had steroid 10-20mg last week for a couple of days related to dermatitis, which is improved recently lost her dog and reports being very stressed as a result of this. added biotin 1 month ago recently was taking freddie for low libido for 2.5 months, but stopped that 1-2 weeks ago no h/o pancreatitis no recent illnesses Admission Exam Per Admitting Provider CONSTITUTIONAL: WNWD, vitals as above, generally appears drowsy from dilaudid EYES: EOMI bilaterally, PERRL, normal conjunctivae, no scleral icterus ENT: external ear and nose normal, oropharynx clear, dry oral mucosa. NECK: trachea midline RESPIRATORY: clear to auscultation bilaterally, no crackles, rales or wheezes, normal respiratory effort CARDIOVASCULAR: tachy rate and rhythm, S1 and 2 heard without murmurs, gallops or rubs, no JVD, no peripheral edema CHEST: inspection of chest was normal GASTROINTESTINAL: soft, TTP in epigastric region, nondistended, no guarding. MUSCULOSKELETAL: strength 5/5 throughout, head is normocephalic and atraumatic SKIN: warm and dry, no rashes NEUROLOGIC: CN 2-12 grossly intact, no sensory deficit, normal cognition, normal speech, no tremor PSYCHIATRIC: alert cooperative and oriented to person, place and time. Euthymic mood, makes good eye contact, language grossly intact, recent and remote memory grossly intact. Principal Diagnosis Acute pancreatitis: Rash: Decreased sexual interest: Anxiety: HTN (hypertension): Discharge Exam Physical Exam: Pleasant and comfortable, no acute distress Respiratory: Breathing comfortably on room air, no wheezing/rhonchi/rales Cardiovascular: Mildly tachycardic, no murmurs/rubs/gallops Gastrointestinal (Abdomen): No tender, no rebound or guarding, + BS Musculoskeletal: No edema Neurologic: awake, alert, spontaneously moving extremities Discharge Data Allergies Allergy/AdvReac Type Severity Reaction Status Date / Time methylchloroisothiazolinone Allergy Unknown rash Verified 12/31/22 10:00 Consultations 12/31/22 09:31 ED Decision to Admit Stat 12/31/22 09:43 Consult Gastroenterology Routine Ordered Studies 12/31/22 07:06 CT abd pelvis IV con only Stat Laboratory Results WBC 9.06 K/ul (4.8-10.8) 01/03/23 07:51 RBC 3.27 M/uL (4.20-5.40) L 01/03/23 07:51 Hgb 10.1 g/dl (12.0-16.0) L 01/03/23 07:51 Hct 29.3 % (37.0-47.0) L 01/03/23 07:51 MCV 89.6 fL (80.0-100.0) 01/03/23 07:51 MCH 30.9 pg (25.0-34.0) 01/03/23 07:51 MCHC 34.5 g/dL (32.0-36.0) 01/03/23 07:51 RDW Std Deviation 38.9 fL (36.4-46.3) 01/03/23 07:51 RDW Coeff of [place] 12.0 % (11.5-14.5) 01/03/23 07:51 Plt Count 151 K/uL (130-400) 01/03/23 07:51 MPV 10.6 fL (9.4-12.4) 01/03/23 07:51 Immature Gran % (Auto) 0.7 % 01/03/23 07:51 Neut % (Auto) 82.1 % 01/03/23 07:51 Lymph % (Auto) 8.8 % 01/03/23 07:51 [place] % (Auto) 5.8 % 01/03/23 07:51 Eos % (Auto) 2.4 % 01/03/23 07:51 Baso % (Auto) 0.2 % 01/03/23 07:51 Neut # (Auto) 7.43 K/uL (1.40-6.50) H 01/03/23 07:51 Lymph # (Auto) 0.80 K/uL (1.2-3.4) L 01/03/23 07:51 [place] # (Auto) 0.53 K/uL (0.11-0.59) 01/03/23 07:51 Eos # (Auto) 0.22 K/uL (0-0.50) 01/03/23 07:51 Baso # (Auto) 0.02 K/uL (0-0.2) 01/03/23 07:51 Immature Gran # (Auto) 0.06 K/uL (0.01-0.20) 01/03/23 07:51 Sodium 139 mmol/L (136-145) 01/03/23 07:51 Potassium 3.4 mmol/L (3.5-5.1) L 01/03/23 07:51 Chloride 107 mmol/L (98-107) 01/03/23 07:51 Carbon Dioxide 27 mmol/L (21-32) 01/03/23 07:51 Anion Gap 5 (3-11) 01/03/23 07:51 BUN 6 mg/dl (6-23) 01/03/23 07:51 Creatinine 0.68 mg/dl (0.6-1.2) 01/03/23 07:51 Est Cr Clr Drug Dosing 120.7 ml/min 01/03/23 07:51 Est GFR ( Amer) 126.8 ml/min 01/03/23 07:51 Est GFR (Non-Af Amer) 109.4 ml/min 01/03/23 07:51 BUN/Creatinine Ratio 8.8 (10-20) L 01/03/23 07:51 Glucose 81 mg/dl (70-99(Fasting)) 01/03/23 07:51 Calcium 8.3 mg/dl (8.5-10.1) L 01/03/23 07:51 Phosphorus 1.9 mg/dl (2.5-4.9) L 01/01/23 05:23 Magnesium 1.7 mg/dl (1.7-2.4) 01/01/23 05:23 Total Bilirubin 0.8 mg/dl (0.2-1.0) 01/03/23 07:51 Direct Bilirubin 0.1 mg/dl (0-0.2) 01/01/23 05:23 AST 22 U/L (13-39) 01/03/23 07:51 ALT 15 U/L (7-52) 01/03/23 07:51 Alkaline Phosphatase 76 U/L (34-104) 01/03/23 07:51 Total Protein 5.3 gm/dl (6.0-8.3) L 01/03/23 07:51 Albumin 3.0 gm/dl (3.4-5.0) L 01/03/23 07:51 Globulin 2.3 gm/dl (2.5-4.0) L 01/03/23 07:51 Albumin/Globulin Ratio 1.3 (0.9-2) 01/03/23 07:51 Triglycerides 143 mg/dl (0-150) 01/01/23 05: Cholesterol 145 mg/dl (0-200) 01/01/23 05: LDL Cholesterol, Calc 79 mg/dl 01/01/23 05: VLDL Cholesterol, Calc 29 mg/dl (0-30) 01/01/23 05: HDL Cholesterol 37 mg/dl 01/01/23: Cholesterol/HDL Ratio 3.9 (0-5) 01/01/23 05: Lipase 55 U/L (11-82) 01/03/23 07:51 HCG, Qual Negative (Negative) 12/31/22 07:00 Urine Color Yellow 12/31/22 Unknown Urine Appearance Clear (Clear) 12/31/22 Unknown Urine pH 5.5 (4.5-7.5) 12/31/22 Unknown Ur Specific [place] > 1.045 (1.000-1.030) H 12/31/22 Unknown Urine Protein 1+ (Negative) H 12/31/22 Unknown Urine Glucose (UA) Negative (Negative) 12/31/22 Unknown Urine Ketones Negative (Negative) 12/31/22 Unknown Urine Blood 3+ (Negative) H 12/31/22 Unknown Urine Nitrite Negative (Negative) 12/31/22 Unknown Urine Bilirubin Negative (Negative) 12/31/22 Unknown Urine Urobilinogen Negative (Negative) 12/31/22 Unknown Ur Leukocyte Esterase Negative (Negative) 12/31/22 Unknown Urine WBC (Auto) 1-5 /hpf (0-5) 12/31/22 Unknown Urine RBC (Auto) 0-4 /hpf (0-4) 12/31/22 Unknown U Hyaline Cast (Auto) 5-10 /lpf (0-5) H 12/31/22 Unknown U Epithel Cells (Auto) >30 /lpf (0-5) H 12/31/22 Unknown Urine Bacteria (Auto) Negative (Negative) 12/31/22 Unknown POC Ur Test Cancelled 12/31/22 16:46 SARS-CoV-2, RNA, NAAT NEGATIVE (NEGATIVE) 12/31/22 09:50 Impressions Abdomen/Pelvis CT 12/31/22 07:06 CT SCAN OF THE ABDOMEN AND PELVIS WITH IV CONTRAST CLINICAL HISTORY: Generalized crampy abdominal pain. COMPARISON STUDY: No priors. TECHNIQUE: Following the IV administration of 94 cc of Optiray 350, CT scan of the abdomen and pelvis is performed from the lung bases to the proximal femora. Images are reviewed in the axial, sagittal, and coronal planes. IV contrast was administered without complication. A dose lowering technique was utilized adhering to the principles of ALARA. CT DOSE: 684.86 mGy.cm FINDINGS: Lung bases: The heart is normal in size and without pericardial effusion. The lung bases are clear. Liver: The contrast-enhanced liver is mildly enlarged, measuring 20 cm in length. The liver is otherwise normal in contour and attenuation. There is no intrahepatic biliary ductal dilatation. The hepatic veins and portal veins are patent. Gallbladder: Unremarkable. Spleen: Normal in size and attenuation. Pancreas: The pancreas is enlarged and edematous. There is significant peripancreatic inflammation and fluid consistent with acute pancreatitis. The gland enhances throughout and the duct is normal in caliber. No organized peripancreatic fluid collection is seen. Adrenal glands: Unremarkable. Kidneys: The contrast enhanced kidneys are normal in size and without hydronephrosis. The kidneys enhance symmetrically. Abdominal vasculature: The abdominal aorta is normal in course and caliber. Bowel: There is no bowel obstruction. Fecal retention is noted in the right colon. The appendix is well-visualized and normal. Peritoneum: Retroperitoneal fluid is seen tracking inferiorly from the pancreas. No intraperitoneal free air is identified. There is a fat-containing umbilical hernia. Lymphadenopathy: None. Pelvic viscera: The bladder, uterus, and adnexa are normal as visualized. An involuting follicle is suggested in the right ovary. Skeletal structures: No lytic or blastic lesions are seen. IMPRESSION: 1. Acute pancreatitis. Correlate with clinical and laboratory findings. 2. The gland enhances throughout and there is no organized peripancreatic fluid collection. 3. Mild hepatomegaly. 4. Additional findings as above. ACT 112: Negative or not required by law. Electronically signed by: Darien Mederos M.D. 12/31/2022 8:10 AM Chest X-Ray 12/31/22 07:07 SINGLE VIEW CHEST CLINICAL HISTORY: Upper abdominal pain FINDINGS: An AP, portable, upright chest radiograph is obtained. No prior studies are available for comparison at the time of dictation. The cardiomediastinal silhouette is unremarkable. The lungs and pleural spaces are clear. No pneumothorax is seen. The bony thorax is grossly intact. IMPRESSION: No active disease in the chest. ACT 112: Negative or not required by law. Electronically signed by: Darien Mederos M.D. 12/31/2022 7:18 AM Hospital Course (1) Acute pancreatitis: No clear etiology noted Triglycerides normal CT A/P shows extensive pancreatic swelling, retroperitoneal fluid extending from pancreas, biliary ducts normal, mild hepatomegaly Lipase 36573--> 2545--> 410-->55 Appreciate GI input Tolerating clears--> will advance diet to full liquid. If she tolerates a full liquid diet today, can likely discharge home todayto continue full liquid diet for a couple more days at home. She can continue to slowly advance her diet while at home. clinically stable (2) Rash: reports a rash recently for which she was taking topical clobetasol. This is recurrent, but is currently not present. Holding clobetasol cream at this time and patient agrees with this plan. (3) Decreased sexual interest: Recently taking Addyi, stopping two weeks ago. This is a medication which works on the serotonin and dopamine receptors. There is no listed side effect of pancreatitis. (4) Anxiety: chronic, stable. Continues on hydroxyzine PRN (5) HTN (hypertension): chronic, at goal. On losartan 12.5mg daily. Cont this daily. DVT proph-Lovenox Full Code Dispo- Likely discharge home today Total Time Total Time Spent Total Time Spent (In Minutes): 35 minutes Discharge Plan Discharge Items Patient Disposition: Home - Self-Care Reason For Visit: ACUTE PANCREATITIS Discharge Diagnosis: Acute pancreatitis: Rash: HTN (hypertension): Activity: Resume your previous activity Non-emergency contact: Primary Care Provider and Making Machine Catcher Call non-emergency contact if: you have any medication questions, your symptoms worsen and your temperature is above 101 Follow-up/Referrals: Jackie Mc DO [Primary Care Provider] - (Date & Time 01/10/2023 1:40 PM Provider Jackie Mc DO [facility] ) Diet: Low Fat Addtl Attending Provider Instructions: Follow up with your primary care provider 01/10/2023 @1:40 PM Jackie Mc DO [facility] Follow up with gastroenterology to arrange for the endoscopy ultrasound. ( your provider will place the referral) Continue full liquid diet for 1-2 days, then advance slowly to soft and low fat diet for a couple diet Seek medical attention if your symptoms worsening Do not drive or operate any machine while taking tramadol Please hold next dose of tramadol if you become drowsy or lethargy Pending Studies at Discharge: No Stand-Alone Forms: [facility] [employer] [facility] [employer], Work/School Release, Smoking Cessation Medications and DC Order Prescriptions: New tramadol 50 mg Tablet 50 mg PO Q12H Qty: 10 0RF ondansetron HCl 4 mg tablet 4 mg PO Q8H PRN (Reason: nausea and vomiting) 5 Days Qty: 20 0RF Continued biotin 5 mg capsule 5 mg PO DAILY hydroxyzine HCl 10 mg PO Q6H PRN (Reason: Anxiety) diphenhydramine HCl [Benadryl Allergy] 25 mg Tablet 12.5 mg PO DAILY losartan 25 mg tablet 12.5 mg PO DAILY cholecalciferol (vitamin D3) [Vitamin D3] 25 mcg (1,000 unit) Tablet 75 mcg PO DAILY clobetasol 0.05 % cream 1 applic TOPICAL BID Addyi 100 mg tablet PO Discharge Orders: Discharge Order (Routine); Ordered 01/03/23 Ordered By: Stfefi Washington Admission Data Admit Date/Time: 12/31/22 09:42 Attending Provider: Steffi Washington Admit Provider: Julia Amos Primary Care Provider: Jackie Mc Other Providers: Sebas Garibay ; Julia Amos ; Mary Bazan
== END 2023-01-03 13:27 | disposition home or self-care (01) | DRG 440 ==
LOC: ED 06:41 → 2N 09:42 → SUATTDRO 09:42 → 2N 10:51